=== PATIENT | male | born 1975 | race Caucasian/White ===

== ENCOUNTER 2017-09-28 17:57 | Emergency (ER) | payer OTHER ==
[~2017-09-28] VITALS: Ht 172.7 cm; Wt 64.4 kg
[2017-09-28] MEDS ORDERED: KEFLEX500 M1 PO (18:14)
[2017-09-28] MEDS ORDERED: BACTRIM DS TAB1 EACH PO (18:33)
[2017-09-28 18:47] VITALS: BP 145/101
== END 2017-09-28 18:48 | disposition home or self-care (01) ==
LOC: M.ERS 17:57
DX: L02.01 Cutaneous abscess of face (principal); L72.0 Epidermal cyst; F17.200 Nicotine dependence, unspecified, uncomplicated

== ENCOUNTER 2017-09-30 17:58 | Emergency (ER) | payer OTHER ==
[~2017-09-30] VITALS: Ht 172.7 cm; Wt 63.5 kg
[~2017-09-30 17:58] MED LIST: BACTRIM DS TAB1 EACH PO; KEFLEX500 M1 PO
[2017-09-30 18:30] VITALS: BP 131/89
== END 2017-09-30 18:36 | disposition home or self-care (01) ==
LOC: M.ERS 17:58
DX: Z48.00 Encounter for change or removal of nonsurgical wound dressing (principal); F17.200 Nicotine dependence, unspecified, uncomplicated

== ENCOUNTER 2021-07-20 05:35 | Emergency (ER) | payer OTHER ==
[~2021-07-20] VITALS: Ht 172.7 cm; Wt 63.5 kg
[2021-07-20 05:54] VITALS: BP 125/83
== END 2021-07-20 07:43 | disposition left against medical advice (07) ==
LOC: M.ERS 05:35
DX: Z20.2 Contact with and (suspected) exposure to infections with a predominantly sexual mode of transmission (principal); Z53.21 Procedure and treatment not carried out due to patient leaving prior to being seen by health care provider